=== PATIENT | male | born 1980 | race Caucasian/White ===

== ENCOUNTER 2017-10-08 22:15 | Emergency (ER) | payer OTHER ==
[~2017-10-08] VITALS: Ht 185.4 cm; Wt 93.0 kg
[~2017-10-08 22:15] MED LIST: BENADRYL25 MG PO; NORCO 5-325 TA1 EACH PO; TRIAMCINOLONE A80 G2 TOP; XANAX 0.5 MG0.5 MG; ZOFRAN4 MG PO; ZOLOFT 50 MG TA50 M1
[2017-10-08] MEDS ORDERED: PROPRANOLOL 1010 MG (22:30)
[2017-10-08 22:53] LABS: ANION GAP 11 mmol/L (7-16); BUN 11 mg/dL (7-18); CALCIUM 8.7 mg/dL (8.5-10.1); CHLORIDE 109 mmol/L (98-107); CO2 27 mmol/L (21-32); CREATININE 0.8 mg/dL (0.6-1.3); GLUCOSE 92 mg/dL (70-99); HEMATOCRIT 46.8 % (42.0-52.0); HEMOGLOBIN 16.1 gm/dL (14.0-18.0); MCH 32.1 pg (26.0-34.0); MCHC 34.5 g/dL (28.0-37.0); MCV 93.3 fL (80.0-100.0); MPV 6.5 fl. (7.2-11.1); NUCLEATED RBCS 0 /100WBC; PLATELET COUNT* 304 thou/uL (150-400); POTASSIUM 3.4 mmol/L (3.5-5.1); RBC 5.01 mil/uL (4.50-6.00); RDW-CV 13.9 % (10.5-14.5); SODIUM 147 mmol/L (136-145); WBC 8.7 thou/uL (4.0-11.0)
[2017-10-08 23:04] LABS: ALBUMIN 4.3 g/dL (3.4-5.0); ALKALINE PHOSPHATASE 83 U/L (46-116); LIPASE 169 U/L (73-393); MAGNESIUM 2.1 mg/dL (1.8-2.4); SGOT 24 U/L (15-37); SGPT 32 U/L (30-65); TOTAL BILIRUBIN 0.1 mg/dL (<0.1-1.0); TOTAL PROTEIN 8.3 g/dL (6.4-8.2); TROPONIN-I LEVEL <0.06 ng/mL (<0.06)
[2017-10-08 23:26] LABS: ABSOLUTE EOSINOPHILS 0.4 thou/uL (0.0-0.7); ABSOLUTE LYMPHOCYTES 3.9 thou/uL (0.8-5.3); ABSOLUTE MONOCYTES 0.9 thou/uL (0.0-1.2); ABSOLUTE NEUTROPHILS 3.5 thou/uL (1.6-8.1); ANISOCYTOSIS Occasional; PLATELET ESTIMATE ADEQUATE; TOXIC GRANULATION 1+
[2017-10-08 23:48] VITALS: BP 130/84
--- NOTE | 2017-10-09 12:29 | EKG ---
[place] [address] ELECTROCARDIOGRAM REPORT Name: ANA MARIA BOWDEN [id number] Admission: 10/08/17 Attend Phys: Discharge: 10/08/17 Date of : 76 Report #: [id number] THIS REPORT FOR: //name// [facility] ED Test Date: 2017-10-08 Test Time: 22:21:05 Pat Name: ANA MARIA BOWDEN Department: Room: Gender: Supervisor Plate Forming: : 1980 Requested By: Mira Crouch Order Number: [id number] MD: Porfirio Waterman Measurements Intervals [place] Rate: 116 P: 51 [place]: 153 QRS: 40 QRSD: 90 T: 36 QT: 328 QTc: 456 Interpretive Statements Sinus tachycardia No previous ECG available for comparison Electronically Signed On 10-09-2017 12:29:05 LEATHER WORKER by Porfirio Waterman [email or web address] <ELECTRONICALLY SIGNED> By: Porfirio Waterman MD, [facility] 10/09/17 1229 2221 2221 Porfirio Waterman MD, FACC /EPI
== END 2017-10-08 23:49 | disposition home or self-care (01) ==
LOC: M.ERS 22:15
PROVIDERS: Emergency Medicine Emergency Medical Services
DX: R07.89 Other chest pain (principal); F17.210 Nicotine dependence, cigarettes, uncomplicated; F10.99 Alcohol use, unspecified with unspecified alcohol-induced disorder; I10 Essential (primary) hypertension

== ENCOUNTER 2017-10-18 00:25 | Emergency (ER) | payer OTHER ==
[~2017-10-18] VITALS: Ht 182.9 cm; Wt 93.0 kg
[~2017-10-18 00:25] MED LIST changes: +PROPRANOLOL 1010 MG
[2017-10-18 03:11] LABS: ABSOLUTE BASOPHILS 0.1 thou/uL (0.0-0.2); ABSOLUTE LYMPHOCYTES 2.5 thou/uL (0.8-5.3); ABSOLUTE MONOCYTES 0.7 thou/uL (0.0-1.2); EOSINOPHILS 0.5 %; HEMATOCRIT 37.2 % (42.0-52.0); HEMOGLOBIN 13.4 gm/dL (14.0-18.0); LYMPHOCYTES 26.9 %; MCH 32.8 pg (26.0-34.0); MCV 91.2 fL (80.0-100.0); MONOCYTES 7.4 %; MPV 6.3 fl. (7.2-11.1); NUCLEATED RBCS 0 /100WBC; PLATELET COUNT* 228 thou/uL (150-400); POLYS 64.2 %; RBC 4.08 mil/uL (4.50-6.00); RDW-CV 13.6 % (10.5-14.5); WBC 9.3 thou/uL (4.0-11.0)
[2017-10-18 03:28] LABS: CALCIUM 8.3 mg/dL (8.5-10.1); CREATININE 0.7 mg/dL (0.6-1.3); POTASSIUM 3.7 mmol/L (3.5-5.1)
[2017-10-18 03:29] LABS: APTT 27.1 Seconds (25.0-31.3); PROTIME 9.4 Seconds (9.20-11.50)
[2017-10-18 03:33] LABS: ALBUMIN 3.7 g/dL (3.4-5.0); TOTAL BILIRUBIN 0.3 mg/dL (<0.1-1.0); TOTAL PROTEIN 7.1 g/dL (6.4-8.2)
[2017-10-18 03:37] VITALS: BP 137/86
== END 2017-10-18 03:38 | disposition short-term general hospital (02) ==
LOC: M.ERS 00:25
PROVIDERS: Family Medicine
DX: M25.511 Pain in right shoulder (principal); I10 Essential (primary) hypertension; F17.210 Nicotine dependence, cigarettes, uncomplicated; F10.99 Alcohol use, unspecified with unspecified alcohol-induced disorder; V49.40XA Driver injured in collision with unspecified motor vehicles in traffic accident, initial encounter; Y93.89 Activity, other specified; Y92.89 Other specified places as the place of occurrence of the external cause; Y99.8 Other external cause status

== ENCOUNTER 2018-02-14 21:45 | Emergency (ER) | payer OTHER ==
[~2018-02-14] VITALS: Ht 182.9 cm; Wt 117.0 kg
[2018-02-14 22:02] LABS: ABSOLUTE BASOPHILS 0.1 thou/uL (0.0-0.2); ABSOLUTE EOSINOPHILS 0.3 thou/uL (0.0-0.7); ABSOLUTE LYMPHOCYTES 4.9 thou/uL (0.8-5.3); ABSOLUTE MONOCYTES 0.7 thou/uL (0.0-1.2); ABSOLUTE NEUTROPHILS 4.3 thou/uL (1.6-8.1); BASOPHILS 0.9 %; EOSINOPHILS 3.3 %; HEMATOCRIT 38.2 % (42.0-52.0); HEMOGLOBIN 13.1 gm/dL (14.0-18.0); LYMPHOCYTES 47.8 %; MCH 30.8 pg (26.0-34.0); MCHC 34.3 g/dL (28.0-37.0); MCV 89.8 fL (80.0-100.0); MONOCYTES 6.6 %; MPV 6.8 fl. (7.2-11.1); NUCLEATED RBCS 0 /100WBC; PLATELET COUNT* 372 thou/uL (150-400); POLYS 41.4 %; RBC 4.25 mil/uL (4.50-6.00); RDW-CV 15.1 % (10.5-14.5); WBC 10.3 thou/uL (4.0-11.0)
[2018-02-14 22:12] LABS: CALCIUM 7.7 mg/dL (8.5-10.1); POTASSIUM 3.9 mmol/L (3.5-5.1)
[2018-02-14 22:17] LABS: ALBUMIN 3.9 g/dL (3.4-5.0); ALCOHOL 227 mg/dL (<10); SALICYLATE 6.2 mg/dL (2.8-20.0); TOTAL BILIRUBIN 0.1 mg/dL (<0.1-1.0); TOTAL PROTEIN 7.5 g/dL (6.4-8.2)
[2018-02-14 22:23] LABS: ACETAMINOPHEN < 2 ug/mL (10-30)
[2018-02-14 22:38] LABS: URINE BILIRUBIN NEGATIVE (Negative); URINE BLOOD NEGATIVE (Negative); URINE CLARITY CLEAR; URINE COLOR YELLOW; URINE GLUCOSE-RANDOM NEGATIVE (Negative); URINE KETONES NEGATIVE (Negative); URINE LEUKOCYTES-REFLEX NEGATIVE (Negative); URINE NITRITE-REFLEX NEGATIVE (Negative); URINE PROTEIN NEGATIVE (Negative); URINE SPECIFIC GRAVITY 1.025 (1.005-1.030); URINE UROBILINOGEN 0.2 E.U./dl (0.2-1.0)
[2018-02-14 22:44] LABS: AMP/METHAMP Negative (Negative); BARBITURATES Negative (Negative); BENZODIAZEPINES POSITIVE (Negative); COCAINE Negative (Negative); METHADONE Negative (Negative); OPIATES Negative (Negative); PCP Negative (Negative); THC Negative (Negative)
--- NOTE | 2018-02-15 11:46 | EKG ---
[place] [address] ELECTROCARDIOGRAM REPORT Name: ANA MARIA BOWDEN Room: [facility]#: [id number] Admission: 02/14/18 Attend Phys: Discharge: Date of : 76 Report #: [id number] THIS REPORT FOR: //name// [facility] ED Test Date: 2018-02-14 Test Time: 21:49:20 Pat Name: ANA MARIA BOWDEN Department: Room: Gender: Wire Lather: GONZALO Sal : 1980 Requested By: Gregory Bowles Order Number: [id number] MD: Porfirio Waterman Measurements Intervals [place] Rate: 120 P: 45 NM: 151 QRS: 21 QRSD: 89 T: 27 QT: 326 QTc: 461 Interpretive Statements Sinus tachycardia Compared to ECG 10/08/2017 22:21:05 No significant changes Electronically Signed On 02-15-2018 11:46:14 CDT by Porfirio Waterman [email or web address] <ELECTRONICALLY SIGNED> By: Porfirio Waterman MD, [facility] 02/15/18 1146 2149 2149 Porfirio Waterman MD, FACC /EPI
--- NOTE | 2018-02-15 11:47 | EKG ---
[place] [address] ELECTROCARDIOGRAM REPORT Name: ANA MARIA BOWDEN Room: [facility]#: [id number] Admission: 02/14/18 Attend Phys: Discharge: Date of : 76 Report #: [id number] THIS REPORT FOR: //name// [facility] ED Test Date: 2018-02-14 Test Time: 23:25:32 Pat Name: ANA MARIA BOWDEN Department: Room: Gender: Unix Analyst: : 1980 Requested By: Gregory Bowles Order Number: [id number] MD: Porfirio Waterman Measurements Intervals [place] Rate: 110 P: 46 [place]: 150 QRS: 27 QRSD: 105 T: 24 QT: 348 QTc: 471 Interpretive Statements Sinus tachycardia Baseline wander in lead(s) I,III,aVL Electronically Signed On 02-15-2018 11:47:31 CDT by Porfirio Waterman [email or web address] <ELECTRONICALLY SIGNED> By: Porfirio Waterman MD, [facility] 02/15/18 1147 2325 2325 Porfirio Waterman MD, FACC /EPI
[2018-02-15 15:34] VITALS: BP 120/54
== END 2018-02-15 15:36 | disposition short-term general hospital (02) ==
LOC: M.ERS 21:45
PROVIDERS: Family Medicine
DX: T42.4X2A Poisoning by benzodiazepines, intentional self-harm, initial encounter (principal); Y92.9 Unspecified place or not applicable; F10.129 Alcohol abuse with intoxication, unspecified; I10 Essential (primary) hypertension; F17.210 Nicotine dependence, cigarettes, uncomplicated

== ENCOUNTER 2018-06-29 23:46 | Emergency (ER) | payer OTHER ==
[~2018-06-29] VITALS: Ht 185.4 cm; Wt 97.5 kg
[2018-06-29] MEDS ORDERED: CLONAZEPAM 0.50.5 M1 PO (23:58)
[2018-06-30 00:32] VITALS: BP 128/91
== END 2018-06-30 00:33 | disposition home or self-care (01) ==
LOC: M.ERS 23:46
DX: T81.31XA Disruption of external operation (surgical) wound, not elsewhere classified, initial encounter (principal); I10 Essential (primary) hypertension; F17.210 Nicotine dependence, cigarettes, uncomplicated; Y83.8 Other surgical procedures as the cause of abnormal reaction of the patient, or of later complication, without mention of misadventure at the time of the procedure; Y92.89 Other specified places as the place of occurrence of the external cause

== ENCOUNTER 2018-09-06 23:24 | Inpatient (IN) | payer OTHER ==
[~2018-09-06] VITALS: Ht 185.4 cm; Wt 100.2 kg
[2018-09-06 23:24] VITALS: BP 139/89
[~2018-09-06 23:24] MED LIST changes: +CLONAZEPAM 0.50.5 M1 PO
[2018-09-06] MEDS ORDERED: NEURONTIN600 MG (23:38)
[2018-09-06] MEDS ORDERED: ZOLOFT50 MG (23:38)
[2018-09-06] MEDS ORDERED: REVIA 50 MG TAB50 M1 (23:39)
[2018-09-06 23:51] LABS: URINE BILIRUBIN NEGATIVE (Negative); URINE BLOOD NEGATIVE (Negative); URINE CLARITY CLEAR; URINE COLOR STRAW; URINE GLUCOSE-RANDOM NEGATIVE (Negative); URINE KETONES NEGATIVE (Negative); URINE LEUKOCYTES-REFLEX NEGATIVE (Negative); URINE NITRITE-REFLEX NEGATIVE (Negative); URINE PROTEIN NEGATIVE (Negative); URINE SPECIFIC GRAVITY <= 1.005 (1.005-1.030); URINE UROBILINOGEN 0.2 E.U./dl (0.2-1.0)
[2018-09-06 23:59] LABS: ABSOLUTE BASOPHILS 0.1 thou/uL (0.0-0.2); ABSOLUTE EOSINOPHILS 0.3 thou/uL (0.0-0.7); ABSOLUTE LYMPHOCYTES 3.9 thou/uL (0.8-5.3); ABSOLUTE MONOCYTES 0.9 thou/uL (0.0-1.2); ABSOLUTE NEUTROPHILS 5.6 thou/uL (1.6-8.1); BASOPHILS 0.6 %; EOSINOPHILS 2.5 %; HEMATOCRIT 45.1 % (42.0-52.0); HEMOGLOBIN 15.4 gm/dL (14.0-18.0); LYMPHOCYTES 36.8 %; MCH 32.2 pg (26.0-34.0); MCHC 34.2 g/dL (28.0-37.0); MCV 94.3 fL (80.0-100.0); MONOCYTES 8.2 %; MPV 7.3 fl. (7.2-11.1); NUCLEATED RBCS 0 /100WBC; PLATELET COUNT* 328 thou/uL (150-400); POLYS 51.9 %; RBC 4.78 mil/uL (4.50-6.00); RDW-CV 14.4 % (10.5-14.5); WBC 10.7 thou/uL (4.0-11.0)
[2018-09-07] VITALS (12 sets, daily range): BP systolic 100–130; BP diastolic 49–76
[2018-09-07 00:02] LABS: AMP/METHAMP Negative (Negative); BARBITURATES Negative (Negative); BENZODIAZEPINES Negative (Negative); COCAINE Negative (Negative); METHADONE Negative (Negative); OPIATES Negative (Negative); PCP Negative (Negative); THC Negative (Negative)
[2018-09-07 00:14] LABS: ANION GAP 8 mmol/L (7-16); BUN 5 mg/dL (7-18); CALCIUM 8.5 mg/dL (8.5-10.1); CHLORIDE 106 mmol/L (98-107); CO2 27 mmol/L (21-32); CREATININE 0.8 mg/dL (0.6-1.3); GLUCOSE 102 mg/dL (70-99); POTASSIUM 3.4 mmol/L (3.5-5.1); SODIUM 141 mmol/L (136-145)
[2018-09-07 00:18] LABS: ALBUMIN 3.8 g/dL (3.4-5.0); ALKALINE PHOSPHATASE 96 U/L (46-116); SGOT 47 U/L (15-37); SGPT 43 U/L (30-65); TOTAL BILIRUBIN 0.2 mg/dL (<0.1-1.0); TOTAL PROTEIN 7.8 g/dL (6.4-8.2); TROPONIN-I LEVEL <0.06 ng/mL (<0.06)
[2018-09-07 00:34] LABS: ACETAMINOPHEN < 2 ug/mL (10-30); ALCOHOL 153 mg/dL (<10); SALICYLATE 4.2 mg/dL (2.8-20.0)
--- NOTE | 2018-09-07 06:06 | NUR ---
0150 PT ADMITTED TO ICU 5 FROM ER VIA STRETCHER. PT MOVED SELF TO BED WITHOUT DIFFICULTY. PT AAOX4 CARDIAC MONTIOR APPLIED WITH ALARMS SET. PT ORIENTED TO ROOM AND BED CONTROLS AND CALL SYSTEM AND VERBALIZED GOOD UNDERSTANDING. PT REFUSES TO ANSWER QUESTIONS RELATED TO TAKING THE OVER DOSE THIS EVENING. PT HAS RESTED QUIETLY THIS SHIFT. SITTER AT BEDSIDE. NO ACUTE CHANGES DURING THIS SHIFT. WILL CONTINUE TO MONITOR.
[2018-09-07 11:15] LABS: CALCIUM 8.2 mg/dL (8.5-10.1); CREATININE 0.8 mg/dL (0.6-1.3); MAGNESIUM 1.9 mg/dL (1.8-2.4); POTASSIUM 3.9 mmol/L (3.5-5.1)
--- NOTE | 2018-09-07 11:35 | EKG ---
[place] [address] ELECTROCARDIOGRAM REPORT Name: ANA MARIA BOWDEN Room: [address] ADM IN M.R.#: [id number] Admission: 09/07/18 Attend Phys: Jamie Watson MD Discharge: Date of : 76 Report #: [id number] THIS REPORT FOR: //name// [facility] ED Test Date: 2018-09-07 Test Time: 00:02:21 Pat Name: ANA MARIA BOWDEN Department: Room: [facility] Gender: M Vice President For Instruction: SILVESTRE : 1980 Requested By: Alvina Wilson Order Number: [id number] MD: Juma Martinez Measurements Intervals [place] Rate: 94 P: 34 [place]: 169 QRS: 12 QRSD: 91 T: 13 QT: 382 QTc: 478 Interpretive Statements Sinus rhythm Probable anteroseptal infarct, old Compared to ECG 02/14/2018 23:25:32 Myocardial infarct finding now present Sinus tachycardia no longer present Electronically Signed On 09-07-2018 11:35:37 BINDER CUTTER by Juma Martinez [email or web address] <ELECTRONICALLY SIGNED> By: Juma Martinez MD, FAC 09/07/18 1135 0002 0002 Juma Martinez MD, [facility] /EPI
[2018-09-07 12:56] LABS: INR 0.9; PROTIME 9.2 Seconds (9.20-11.50)
--- NOTE | 2018-09-07 13:30 | NUR ---
PT SENT TO 313 VIA WHEELCHAIR. CASE MANAGEMENT NOTIFIED ABOUT TELEPSYCH RESULTS. MOTHER HARIS HAS BEEN UPDATE WITH PERMISSION FROM PATIENT.
--- NOTE | 2018-09-07 14:32 | EKG ---
[place] [address] ELECTROCARDIOGRAM REPORT Name: ANA MARIA BOWDEN Room: [address] ADM IN M.R.#: [id number] Admission: 09/07/18 Attend Phys: Abe Mesa, Discharge: Date of : 76 Report #: [id number] THIS REPORT FOR: //name// [facility] Test Date: 2018-09-07 Test Time: 13:27:53 Pat Name: ANA MARIA BOWDEN Department: Room: [facility] Gender: M Lawyer: : 1980 Requested By: Abe Mesa Order Number: [id number] MD: Juma Martinez Measurements Intervals [place] Rate: 90 P: 25 [place]: 160 QRS: 17 QRSD: 90 T: 12 QT: 364 QTc: 446 Interpretive Statements Sinus rhythm Baseline wander in lead(s) V1 Compared to ECG 09/07/2018 00:02:21 Myocardial infarct finding no longer present Electronically Signed On 09-07-2018 14:32:48 CHRONOMETER ASSEMBLER by Juma Martinez [email or web address] <ELECTRONICALLY SIGNED> By: Juma Martinez MD, FAC 09/07/18 1432 1327 1327 Juma Martinez MD, [facility] /EPI
--- NOTE | 2018-09-07 15:30 | NUR ---
PATIENT CAME TO THE FLOOR FROM THE ICU IN STABLE CONDITION. ONLY CONCERN IS WANTING A NICOTINE PATCH AND HAVING A COUGH. ANTIBIOTICS STARTED AND PATICH PLACED. PATIENT IS RESTING IN BED WITH SITTER IN THE ROOM. WILL CONTINUE TO MONITOR.
--- NOTE | 2018-09-07 15:37 | 2DMMODE ---
[place] [address] 2 D/M-MODE ECHOCARDIOGRAM Name: ANA MARIA BOWDEN Room: [address] IN [facility]#: [id number] Admission: 09/07/18 Attend Phys: Abe Dalton Discharge: Date of : 76 Date of Service: 09/07/18 1537 Report #: [id number] THIS REPORT FOR: //name// APPROVED REPORT Study performed: 09/07/2018 14:33:28 EXAM: Comprehensive 2D, Doppler, and color-flow Echocardiogram Patient Location: In-Patient Room #: [facility] Status: routine BSA: 2.24 HR: 100 bpm BP: 128/74 mmHg Rhythm: NSR Other Information Study Quality: Good Indications Chest Pain OVERDOSE 2D Dimensions IVSd: 9.50 (7-11mm) LVOT Diam: 21.47 (18-24mm) LVDd: 46.67 mm PWd: 9.33 (7-11mm) Ascending Ao: 31.87 (22-36mm) LVDs: 21.71 (25-40mm) Aortic Root: 33.87 mm Volumes Left Atrial Volume (Systole) LA ESV Index: 31.00 mL/m2 Aortic Valve AoV Peak Eric.: 1.50 m/s AO Peak Gr.: 8.97 mmHg LVOT Max P.66 mmHg AO Mean Gr.: 5.28 mmHg LVOT Mean P.31 mmHg LVOT Max V: 1.29 m/s AO V2 VTI: 28.80 cm LVOT Mean V: 0.84 m/s JULIO CÉSAR (VTI): 3.26 cm2 LVOT V1 VTI: 25.94 cm Mitral Valve E/A Ratio: 1.01 MV Decel. Time: 174.56 [place] [address] 2 D/M-MODE ECHOCARDIOGRAM Name: ANA MARIA BOWDEN Room: [address] IN .R.#: [id number] Admission: 09/07/18 Attend Phys: Abe Dalton Discharge: Date of : 76 Date of Service: 09/07/18 1537 Report #: [id number] MV E Max Eric.: 1.04 m/s MV PHT: 50.62 ms MVA (PHT): 4.35 cm2 TDI E/Lateral E': 6.93 E/Medial E': 8.00 Medial E' Eric.: 0.13 m/s Lateral E' Eric.: 0.15 m/s Pulmonary Valve PV Peak Eric.: 1.17 m/s PV Peak Gr.: 5.51 mmHg Tricuspid Valve RAP Estimate: 5.00 mmHg TR Peak Gr.: 22.03 mmHg RVSP: 27.00 mmHg PA Pressure: 27.00 mmHg Left Ventricle The left ventricle is normal size. There is normal LV segmental wall motion. There is normal left ventricular wall thickness. Left ventricular systolic function is normal. The left ventricular ejection fraction is within the normal range. LVEF is 65-70%. The left ventricular diastolic function is normal. Right Ventricle The right ventricle is normal size. The right ventricular systolic function is normal. Atria The left atrium size is normal. The right atrium size is normal. Aortic Valve The aortic valve is normal in structure. No aortic regurgitation is present. There is no aortic valvular stenosis. Mitral Valve The mitral valve is normal in structure. There is no mitral valve regurgitation noted. No evidence of mitral valve stenosis. Tricuspid Valve The tricuspid valve is normal in structure. Trace tricuspid regurgitation. No pulmonary hypertension. Pulmonic Valve The pulmonary valve is normal in structure[place] [address] 2 D/M-MODE ECHOCARDIOGRAM Name: ANA MARIA BOWDEN Room: [address]#: [id number] Admission: 09/07/18 Attend Phys: Abe Dalton Discharge: Date of : 76 Date of Service: 09/07/18 1537 Report #: [id number] valvular regurgitation. Great Vessels The aortic root is normal in size. IVC is normal in size and collapses >50% with inspiration. Pericardium There is no pericardial effusion. <Conclusion> LVEF is 65-70%. There is normal LV segmental wall motion. There is no aortic valvular stenosis. No aortic regurgitation is present. No evidence of mitral valve stenosis. There is no mitral valve regurgitation noted. <ELECTRONICALLY SIGNED> By: Juma Martinez MD, FACC 09/07/18 1537 1537 153 Juma Martinez MD, FACC /INF
--- NOTE | 2018-09-07 17:45 | NUR ---
PATIENT HAS BEEN ALERT AND ORIENTED TODAY SINCE COMING FROM THE ICU. NO COMPLAINTS OF PAIN. HAS COMPLAINED OF A COUGH AND REQUESTED A NICOTINE PATCH. VITAL STABLE ON ROOM AIR. PATIENT HAS A SITTER AND IS CLOSE TO THE NURSES STATION. ROOM WAS CLEARED BEFORE PATIENT CAME FROM THE ICU. CALL LIGHT IS IN REACH, WILL CONTINUE TO MONITOR.
[2018-09-08 04:51] LABS: HEMATOCRIT 41.4 % (42.0-52.0); MCH 32.6 pg (26.0-34.0); MCHC 33.8 g/dL (28.0-37.0); MCV 96.3 fL (80.0-100.0); RBC 4.3 mil/uL (4.50-6.00); RDW-CV 14.7 % (10.5-14.5); WBC 11.1 thou/uL (4.0-11.0)
[2018-09-08 05:19] LABS: CALCIUM 8.2 mg/dL (8.5-10.1); CREATININE 0.7 mg/dL (0.6-1.3); MAGNESIUM 2.1 mg/dL (1.8-2.4); POTASSIUM 3.9 mmol/L (3.5-5.1); TOTAL BILIRUBIN 0.4 mg/dL (<0.1-1.0)
--- NOTE | 2018-09-08 05:34 | NUR ---
PT SLEPT WELL WITH SITTER IN ROOM. IVF INFUSING PER PUMP WITHOUT DIFFICULTY RFA. AM LABS DRAWN. PT DENIES PAIN OR PROBLEMS THIS SHIFT. TEARY EYED WHEN TALKING ABOUT DISCHARGING TO INPT PSYCH, HAS QUESTIONS ABOUT TRANSPORTATION ARRANGEMENTS AND PLAN. REASSURANCE GIVEN, CM TO ASSIST WITH DISCHARGE PLAN. IV ABX GIVEN ORDERED, RT TX. CALM, COOPERATIVE THIS SHIFT. SUICIDE PRECAUTIONS IN PLACE.
[2018-09-08 07:50] VITALS: BP 119/83
[2018-09-08 16:00] VITALS: BP 131/68
--- NOTE | 2018-09-08 17:27 | NUR ---
ASSESSMENT COMPLETE. PT ALERT AND ORIENTED X4. SITTER IN PLACE. DENIES PAIN AND N/V. PT IS ON ROOM AIR, VITALS STABLE. PT TO GET PLACEMENT ONCE MEDICALY STABLE. PT HAS IV FLUIDS INFUSING. TOLERATING DIET. SEE ASSESSMENT AND VITALS FOR OTHER DETAILS. CALL LIGHT WITHIN REACH, WILL CONTINUE PLAN OF CARE
[2018-09-08 20:00] VITALS: BP 141/81
[2018-09-09 04:13] LABS: HEMATOCRIT 39.5 % (42.0-52.0); HEMOGLOBIN 13.2 gm/dL (14.0-18.0); MCH 31.8 pg (26.0-34.0); MCHC 33.4 g/dL (28.0-37.0); MCV 95.2 fL (80.0-100.0); RBC 4.15 mil/uL (4.50-6.00); WBC 11.3 thou/uL (4.0-11.0)
[2018-09-09 04:36] LABS: CALCIUM 8.2 mg/dL (8.5-10.1); CREATININE 0.6 mg/dL (0.6-1.3); MAGNESIUM 1.9 mg/dL (1.8-2.4); PHOSPHORUS* 4.6 mg/dL (2.5-4.9); POTASSIUM 3.6 mmol/L (3.5-5.1); TOTAL BILIRUBIN 0.3 mg/dL (<0.1-1.0); TOTAL PROTEIN 5.9 g/dL (6.4-8.2)
--- NOTE | 2018-09-09 05:20 | NUR ---
ASSUMED CARE OF PT AT 1900 PT ALERT AND ORIENTED X4 VS AND ASSESSMENT AT PTS BASELINE. PT C/O NOT SLEEPING CONTACTED MD AND OBTAINED ORDERS FOR BENARYL WITH A REPEAT IF NEEDED PT HAD FIRST DOSE THEN SLEPT THROUGH THE NIGHT. WILL CONTINUE PLAN OF CARE.
[2018-09-09 08:00] VITALS: BP 127/83
[2018-09-09 15:42] VITALS: BP 127/80
--- NOTE | 2018-09-09 15:54 | NUR ---
DISCUSSED WITH ,EARLIER. HE SAID PT.IS STABLE FOR DISCHARGE. FAXED INPT.PSYCH REFERRAL TO [facility] AT [facility] AT 1145. SHE CALLED BACK AT THIS TIME. THEY HAVE A BED AT [facility]. THEY WOULD LIKE PT. TO COME AFTER 5PM. INFORMED. HE GAVE ORDER FOR OK TO TRANSFER. ARRANGED AMBULANCE WITH [facility] FOR 5:00. PT.INFORMED. HE SIGNED EMTALA FORM. CHART COPIED BY [employer] TO GO WITH PT. GAVE TRISHA LOMBARDO NUMBER TO CALL REPORT. NOTIFIED MOTHER BY PHONE.
--- NOTE | 2018-09-09 17:15 | NUR ---
DISCHARGE NOTE - PT DISCHARGED TO [facility] IN [place], [place]. REPORT CALLED TO TRISHA BELTRAN. NO QUESTIONS. EMS TRANSPORTED PT VIA CART. ALL BELONGINGS SENT WITH PT. RUBY STATED OK FOR PT TO COME IN SI CLOTHES. OK FOR PT TO CHANGE. NO QUESTIONS FROM EMS. IV REMOVED WITHOUT DIFFICULTY.
== END 2018-09-09 17:15 | DRG 917 ==
LOC: M.ERS 23:24 → M.TBA-ER 09-07 00:53 → M.3W 09-07 00:53 → M.ICU 09-07 00:53 → M.3W 09-07 13:45
PROVIDERS: Emergency Medicine; ADMIT Family Medicine
DX: T44.7X2A Poisoning by beta-adrenoreceptor antagonists, intentional self-harm, initial encounter (principal); J96.01 Acute respiratory failure with hypoxia; T42.4X2A Poisoning by benzodiazepines, intentional self-harm, initial encounter; T42.6X2A Poisoning by other antiepileptic and sedative-hypnotic drugs, intentional self-harm, initial encounter; I10 Essential (primary) hypertension; F32.9 Major depressive disorder, single episode, unspecified; E87.6 Hypokalemia; F17.210 Nicotine dependence, cigarettes, uncomplicated; J20.9 Acute bronchitis, unspecified; R07.89 Other chest pain; F41.9 Anxiety disorder, unspecified; Z60.2 Problems related to living alone; Y92.89 Other specified places as the place of occurrence of the external cause; Z90.81 Acquired absence of spleen; Z82.49 Family history of ischemic heart disease and other diseases of the circulatory system; Z79.899 Other long term (current) drug therapy

== ENCOUNTER 2020-06-11 14:43 | Emergency (ER) | payer OTHER ==
[~2020-06-11] VITALS: Ht 182.9 cm; Wt 86.2 kg
[~2020-06-11 14:43] MED LIST changes: +NEURONTIN600 MG; +REVIA 50 MG TAB50 M1; +ZOLOFT50 MG
[2020-06-11 15:08] LABS: ABSOLUTE EOSINOPHILS 0.2 thou/uL (0.0-0.7); ABSOLUTE MONOCYTES 0.4 thou/uL (0.0-1.2); ABSOLUTE NEUTROPHILS 3.6 thou/uL (1.6-8.1); BASOPHILS 0.6 %; EOSINOPHILS 2.5 %; HEMATOCRIT 38.7 % (42.0-52.0); HEMOGLOBIN 13.5 gm/dL (14.0-18.0); LYMPHOCYTES 41.4 %; MCH 31.6 pg (26.0-34.0); MCV 90.2 fL (80.0-100.0); MONOCYTES 5.6 %; MPV 6.9 fl. (7.2-11.1); NUCLEATED RBCS 0 /100WBC; PLATELET COUNT* 367 thou/uL (150-400); POLYS 49.9 %; RBC 4.28 mil/uL (4.50-6.00); WBC 7.1 thou/uL (4.0-11.0)
[2020-06-11] MEDS ORDERED: KLONOPIN1 MG PO (15:08)
[2020-06-11 15:15] LABS: CALCIUM 8.1 mg/dL (8.5-10.1); CREATININE 0.9 mg/dL (0.6-1.3); POTASSIUM 4.1 mmol/L (3.5-5.1)
[2020-06-11 15:18] LABS: ALCOHOL 129 mg/dL (<10); SALICYLATE 4.4 mg/dL (2.8-20.0)
[2020-06-11 15:19] LABS: ACETAMINOPHEN < 2 ug/mL (10-30)
[2020-06-11 15:20] LABS: TOTAL BILIRUBIN 0.3 mg/dL (<0.1-1.0); TOTAL PROTEIN 7.6 g/dL (6.4-8.2)
[2020-06-11 15:39] LABS: URINE BILIRUBIN NEGATIVE (Negative); URINE BLOOD NEGATIVE (Negative); URINE CLARITY CLEAR; URINE COLOR YELLOW; URINE GLUCOSE-RANDOM NEGATIVE (Negative); URINE KETONES NEGATIVE (Negative); URINE LEUKOCYTES-REFLEX NEGATIVE (Negative); URINE NITRITE-REFLEX NEGATIVE (Negative); URINE PROTEIN NEGATIVE (Negative); URINE UROBILINOGEN 0.2 E.U./dl (0.2-1.0)
[2020-06-11 15:46] LABS: AMP/METHAMP Negative (Negative); BARBITURATES Negative (Negative); BENZODIAZEPINES POSITIVE (Negative); COCAINE Negative (Negative); METHADONE Negative (Negative); OPIATES Negative (Negative); PCP Negative (Negative); THC POSITIVE (Negative)
--- NOTE | 2020-06-11 17:46 | EKG ---
[place] [address] ELECTROCARDIOGRAM REPORT Name: ANA MARIA BOWDEN Room: [facility]#: [id number] Admission: 06/11/20 Attend Phys: Discharge: Date of : 76 Date of Service: 06/11/201510 Report #: [id number] THIS REPORT FOR: //name// [facility] ED Test Date: 2020-06-11 Test Time: 15:11:24 Pat Name: ANA MARIA BOWDEN Department: Room: Gender: Orthodontic Treatment Coordinator: : 1980 Requested By: Vinicio Landaverde Order Number: [id number] MD: Eduardo Dudley Measurements Intervals [place] Rate: 93 P: 39 [place]: 169 QRS: 17 QRSD: 87 T: 33 QT: 353 QTc: 440 Interpretive Statements Sinus rhythm Compared to ECG 09/07/2018 13:27:53 No significant changes Electronically Signed On 06-11-2020 17:46:15 CDT by Eduardo Dudley [email or web address] <ELECTRONICALLY SIGNED> By: Eduardo Dudley MD, [facility] 06/11/20 1746 D: [id number] 10 Eduardo Dudley MD, FACC /EPI
[2020-06-12 14:01] VITALS: BP 110/59
== END 2020-06-12 14:03 ==
LOC: M.ERS 14:43
PROVIDERS: Emergency Medicine Emergency Medical Services
DX: T42.4X2A Poisoning by benzodiazepines, intentional self-harm, initial encounter (principal); R45.851 Suicidal ideations; I10 Essential (primary) hypertension; F17.210 Nicotine dependence, cigarettes, uncomplicated; Z90.89 Acquired absence of other organs; Z79.899 Other long term (current) drug therapy; Y92.89 Other specified places as the place of occurrence of the external cause